=== PATIENT | male | born 1980 | race Hispanic/Latino ===

== ENCOUNTER → 2021-02-09 | Outpatient (CLI) | payer OTHER | END | disposition home or self-care (01) | LOC: RAH 08:49 | PROVIDERS: ATTEND Family Medicine | DX: K21.00 Gastro-esophageal reflux disease with esophagitis, without bleeding (principal); R94.5 Abnormal results of liver function studies; K21.9 Gastro-esophageal reflux disease without esophagitis | CPT/HCPCS: 74240; 76700 ==